=== PATIENT | female | born 1950 | race Two or more races ===

== ENCOUNTER 2024-08-16 06:32 | Emergency (ER) | payer MEDICARE ==
[~2024-08-16] VITALS: Ht 149.9 cm; Wt 50.8 kg
[2024-08-16] MEDS ORDERED: ONDANSETRON ODT4 MG PO (07:20)
[2024-08-16] MEDS: ONDANSETRON HCL INJ 2MG/ML 2ML 2 MG/ML VIAL IV ONE (07:31)
[2024-08-16] MEDS: FAMOTIDINE 20 MG/2 ML VIAL IV ONE (07:31)
[2024-08-16] MEDS: KETOROLAC TROMETHAMINE 30 MG/ML VIAL IV ONE (07:32)
[2024-08-16] MEDS: LACTATED RINGER'S 1,000 ML INJ ONE (07:32)
[2024-08-16 08:26] VITALS: PULSE 69; RESP 16; TEMP 98.6; O2SAT 96
[2024-08-16] MEDS ORDERED: CRESTOR40 MG (08:37)
== END 2024-08-16 08:30 | disposition home or self-care (01) ==
LOC: FSED 06:38
DX: R11.2 Nausea with vomiting, unspecified (principal); R19.7 Diarrhea, unspecified; R53.81 Other malaise; R53.83 Other fatigue
CPT/HCPCS: 80053; 81003; 85025; 96374; 96375; 99284; J1885; J2405; J7121